=== PATIENT | male | born 1950 | race Caucasian/White ===

== ENCOUNTER 2016-07-18 09:56 | Emergency (ER) | payer MEDICARE, BC ==
--- NOTE | 2016-07-24 10:31 | ER ---
ADMIT: 07/18/2016 RM/LOC: ER [facility] MR#: [id number] [id number] [place], [place] [id number] SHAWN ESPARZA [address] [address] Emergency Room Report SEX: M AGE: 65 : 1950 DATE: 07/18/2016 ADDENDUM: 65-year-old MR male coming in from assisted with nausea and vomiting, not keep anything down. He is diabetic. CBC and chemistries are negative. We did a CT scan of the abdomen and pelvis thinking he might be a little distended, but that was negative. Diagnosis is nausea and vomiting. This is probably viral in nature. We did give him about a liter of fluid, gave him 4 of Zofran. He actually said he is doing much better. At this time as the assisted does have a nurse to help monitor things, so he is going to get discharged back there, n.p.o. until about 4 then sips of 7 Up or Gatorade through the night and into the morning. If he is keeping everything down, then he should advance diet slowly. CONDITION ON DISCHARGE: Improved. Nathan Luna MD/ ann JOB #: [id number] CC: Nathan Luna MD, Attending Physician UNKNOWN, Family Physician
== END 2016-07-18 13:14 | disposition home or self-care (01) ==
LOC: ER 09:56
DX: R11.2 Nausea with vomiting, unspecified (principal); E11.9 Type 2 diabetes mellitus without complications; I10 Essential (primary) hypertension; Z79.899 Other long term (current) drug therapy; Z79.84 Long term (current) use of oral hypoglycemic drugs; Z79.82 Long term (current) use of aspirin